=== PATIENT | female | born 1990 | race Native Hawaiian/Other Pacific Islander ===

== ENCOUNTER → 2023-11-14 10:44 | Outpatient (CLI) | payer OTHER, SELFPAY ==
[2023-11-14 11:46] LABS: Add Manual Diff / Slide Review NO; Basophils Absolute Auto 0 /uL (0-100); Basophils Percent Auto 0.3 % (0-2); Eosinophils Absolute Auto 0 /uL (0-450); Eosinophils Percent Auto 0.1 % (2-4); Hematocrit 38.7 % (36-46); Lymphocytes Absolute Auto 1600 /uL (1100-4500); Mean Corpuscular HGB Conc 33.6 % (30-36); Mean Corpuscular Hemoglobin 28.6 PG (26-34); Mean Corpuscular Volume 85.1 fL (80-100); Monocytes Absolute Auto 400 /uL (0-900); Neutrophils Absolute Auto 11100 /uL (1500-7000); Neutrophils Percent Auto 84.6 % (50-75); Platelet Count 339 X10^3/uL (150-400); Red Blood Cell Count 4.55 X10^6/uL (4.0-5.2); Red Cell Distribution Width 14.8 % (11.6-14.8); White Blood Cell Count 13.1 X10^3/uL (4.5-11.0)
[2023-11-14 11:52] LABS: Hemoglobin A1C% w Est Avg Glu 5.4 % (4.0-6.0)
[2023-11-14 11:56] LABS: Natera Collection Specimen Collected
[2023-11-14 12:08] LABS: Alanine Aminotransferase 13 IU/L (<35); Albumin 4.5 g/dL (3.5-5.0); Albumin Globulin Ratio 1.4 (1.0-2.8); Alkaline Phosphatase 38 U/L (38-126); Aspartate Aminotransferase 18 IU/L (14-36); BUN Creatinine Ratio 19.5 (6-22); Bilirubin Total 0.3 mg/dL (0.2-1.3); Blood Urea Nitrogen 8 mg/dL (7-17); Calcium 9.4 mg/dL (8.4-10.2); Carbon Dioxide 24 mmol/L (22-32); Chloride 107 mmol/L (98-107); Estimated Glomerular Filt Rate > 60 mL/min (>60); Globulin 3.2 g/dL (1.7-4.1); Glucose 148 mg/dL (70-100); HEMOLYSIS < 15 (0-50); Potassium 3.7 mmol/L (3.4-5.1); Sodium 138 mmol/L (137-145); Total Protein 7.7 g/dL (6.3-8.2)
[2023-11-14 12:25] LABS: Free T4, Direct Thyroxine 1.04 ng/dL (0.78-2.19)
[2023-11-14 12:40] LABS: Thyroid Stimulating Hormone 0.838 uIU/mL (0.47-4.68)
== END ==
PROVIDERS: Referring Provider Obstetrics & Gynecology; Visit Provider Obstetrics & Gynecology
DX: O09.522 Supervision of elderly multigravida, second trimester (principal); O99.280 Endocrine, nutritional and metabolic diseases complicating pregnancy, unspecified trimester; O09.819 Supervision of pregnancy resulting from assisted reproductive technology, unspecified trimester; E03.9 Hypothyroidism, unspecified; Z3A.13 13 weeks gestation of pregnancy
CPT/HCPCS: 36415; 80053; 83036; 84439; 84443; 85025

== ENCOUNTER → 2024-01-21 08:34 | Outpatient (CLI) | payer OTHER, SELFPAY ==
[2024-01-21 14:32] LABS: Free T4, Direct Thyroxine 0.79 ng/dL (0.78-2.19)
[2024-01-21 14:46] LABS: Thyroid Stimulating Hormone 1.99 uIU/mL (0.47-4.68)
== END ==
PROVIDERS: Referring Provider Obstetrics & Gynecology; Visit Provider Obstetrics & Gynecology
DX: O99.280 Endocrine, nutritional and metabolic diseases complicating pregnancy, unspecified trimester (principal); E03.9 Hypothyroidism, unspecified; O09.819 Supervision of pregnancy resulting from assisted reproductive technology, unspecified trimester
CPT/HCPCS: 36415; 82105; 84439; 84443

== ENCOUNTER → 2024-02-20 07:48 | Outpatient (CLI) | payer OTHER, SELFPAY ==
[2024-02-20 09:52] LABS: Hematocrit 37.4 % (36-46); Hemoglobin 12.4 g/dL (12.0-16.0)
[2024-02-20 10:14] LABS: GTT (PREG) 1 Hour PP 50gm Dose 162 mg/dL (76-139)
== END ==
PROVIDERS: Referring Provider Obstetrics & Gynecology; Visit Provider Obstetrics & Gynecology
DX: Z34.02 Encounter for supervision of normal first pregnancy, second trimester (principal); Z3A.26 26 weeks gestation of pregnancy
CPT/HCPCS: 36415; 82950; 85014; 85018

== ENCOUNTER → 2024-02-29 07:59 | Outpatient (CLI) | payer OTHER, SELFPAY ==
[2024-02-29 10:09] LABS: Glucose Fasting Gestational 84 mg/dL (76-95)
[2024-02-29 10:13] LABS: Glucose 1 Hour Gest 187 mg/dL (76-180)
[2024-02-29 10:58] LABS: Glucose 2 Hour Gest 165 mg/dL (76-155)
[2024-02-29 11:07] LABS: Glucose Tol Interp,Gestational INTERPRETATION
[2024-02-29 11:40] LABS: Glucose 3 Hour Gest 94 mg/dL (76-140)
== END ==
PROVIDERS: Referring Provider Obstetrics & Gynecology; Visit Provider Obstetrics & Gynecology
DX: O99.810 Abnormal glucose complicating pregnancy (principal)
CPT/HCPCS: 36415; 82951; 82952

== ENCOUNTER 2024-03-11 06:46 | Observation (INO) | payer OTHER, SELFPAY ==
--- NOTE | 2024-03-11 07:23 | DI.US.S_ITS ---
PROCEDURE: US OB LIMITED INDICATIONS: RIGHT FLANK PAIN OUTSIDE/PRIOR DATING DATA: Last menstrual period (LMP): Unknown. LMP-based estimated date of delivery (CHUCHO): Unknown. First dating scan (date and location): Unknown. Estimated date of delivery (CHUCHO) from IVF: 05/17/2024. The calculations are made using the IVF CHUCHO of 05/17/2024. TECHNIQUE: Real-time scanning was performed of the fetus, with image documentation. Endovaginal scanning: Not performed COMPARISON: None. FINDINGS: A single living intrauterine gestation is present. Presentation: Vertex. Placenta: Placental position is anterior, without previa. Amniotic fluid index: 12.8 cm, normal range is 5-24 cm. Single deepest vertical pocket is 8.2 cm. heart rate: 130 beats per minute. Maternal cervical canal: 2.9 cm long. Normal lower limit is 2.5 cm. Clinically estimated gestational age: 30 weeks 3 days Other: There is moderate to severe hydronephrosis involving the right kidney. An obstructing stone is not identified. IMPRESSION: 1. Living 3rd trimester intrauterine . 2. Moderate to severe hydronephrosis of the right kidney. Comment: Preliminary findings were reported by the gold assayer to the referring provider at the time of study completion. Dictated by: Mateo Ruiz M.D. on 03/11/2024 at 8:16 Approved by: Mateo Ruiz M.D. on 03/11/2024 at 8:19
[2024-03-11 07:50] LABS: Appearance Urine UA CLEAR; Bilirubin Urine UA NEGATIVE (NEGATIVE); Color Urine UA YELLOW; Glucose Urine UA NEGATIVE (Negative); Ketones Urine UA NEGATIVE (NEGATIVE); Leukocyte Esterase Urine UA TRACE (NEGATIVE); Nitrite Urine UA NEGATIVE (Negative); Occult Blood Urine UA 3+ (Negative); Protein Urine UA TRACE (Negative); Urine Volume 10mL (spun); Urobilinogen Urine UA 0.2 E.U./dL (0.2)
[2024-03-11 07:52] LABS: Bacteria Urine Moderate (10-30); Culture Indicated Urine Specimen Cultured; RBC Urine 10-30/HPF (0-5/HPF); Squamous Epithelial Cell Urine 0-1 /HPF (0-5/HPF); WBC Urine 1-5/HPF (0-5/HPF)
[2024-03-11] MEDS: ONDANSETRON 4 MG/2 ML INJ IV (07:53)
[2024-03-11] MEDS: ACETAMINOPHEN IV 1,000 MG/100 ML VIAL 400 MG IV (07:53)
[2024-03-11 07:55] LABS: Add Manual Diff / Slide Review NO; Basophils Absolute Auto 100 /uL (0-100); Basophils Percent Auto 0.5 % (0-2); Eosinophils Absolute Auto 200 /uL (0-450); Eosinophils Percent Auto 1.4 % (2-4); Hematocrit 40.1 % (36-46); Hemoglobin 13.5 g/dL (12.0-16.0); Lymphocytes Absolute Auto 1400 /uL (1100-4500); Lymphocytes Percent Auto 11.1 % (25-40); Mean Corpuscular HGB Conc 33.7 % (30-36); Mean Corpuscular Hemoglobin 29.8 PG (26-34); Mean Corpuscular Volume 88.7 fL (80-100); Monocytes Absolute Auto 400 /uL (0-900); Neutrophils Absolute Auto 10600 /uL (1500-7000); Platelet Count 288 X10^3/uL (150-400); Red Blood Cell Count 4.53 X10^6/uL (4.0-5.2); Red Cell Distribution Width 14.4 % (11.6-14.8); White Blood Cell Count 12.6 X10^3/uL (4.5-11.0)
[2024-03-11] MEDS: LACTATED RINGERS 1,000 ML 1000 ML IV (08:00)
[2024-03-11 08:33] LABS: Alanine Aminotransferase 25 IU/L (<35); Albumin 3.9 g/dL (3.5-5.0); Albumin Globulin Ratio 1.3 (1.0-2.8); Alkaline Phosphatase 60 U/L (38-126); Aspartate Aminotransferase 26 IU/L (14-36); BUN Creatinine Ratio 14.9 (6-22); Bilirubin Total 0.4 mg/dL (0.2-1.3); Blood Urea Nitrogen 7 mg/dL (7-17); Calcium 9.4 mg/dL (8.4-10.2); Carbon Dioxide 19 mmol/L (22-32); Chloride 106 mmol/L (98-107); Estimated Glomerular Filt Rate > 60 mL/min (>60); Globulin 2.9 g/dL (1.7-4.1); Glucose 108 mg/dL (70-100); HEMOLYSIS < 15 (0-50); Potassium 4.2 mmol/L (3.4-5.1); Sodium 134 mmol/L (137-145); Total Protein 6.8 g/dL (6.3-8.2)
--- NOTE | 2024-03-11 09:46 | P.TNLD_ITS ---
Visit Information Visit Information Date of evaluation: 03/11/24 On-call OB Provider: Dulce Guzman Comments/Additional reasons for admission: 34yo at 30+3wks presented to triage today for right flank pain. She reports having lower abdominal cramping that started last night, then this morning the right flank pain started and acutely worsened. She had nausea and vomiting associated with this, and presented to the center. She denies fever, chills, or dysuria. Vital Signs Vital Signs: BP 118/83, P 83, T 98.7, 100% RA [facility] Medical History (Updated 03/11/24 @ 09:45 by Dulce Guzman DO) High risk due to history of previous obstetrical problem Migraine without aura Ruptured ectopic Surgical History (Updated 10/31/23 @ 09:23 by Nayla Grant RN) [place] teeth extracted History of endoscopy History of eye surgery History of gynecologic surgery History of bilateral salpingectomy Family History (Updated 10/31/23 @ 09:29 by Nayla Grant RN) Mother Ovarian cancer Breast cancer Father Pancreatic cancer Diabetes mellitus Grandfather Prostate cancer Family/Other Diabetes mellitus Grandmother Pacemaker Grandfather Heart disease Uncle Leukemia in relapse Uncle No problems noted. 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[employer]) current occupational exposures/hazards: Yes (aware of precautions; facility does not screen for TB) special betty needs: No travel history: recent ([place]) seatbelt use: always helmet use: No (counseled to wear a helmet when snowboarding) water heater temp set < 120 deg: Yes working smoke detector in home: Yes fire extinguisher in home: Yes carbon monox detector in home: Yes firearms in home: Yes firearms unloaded and locked: Yes do you feel safe at home: Yes Smoking Status: Never smoker second hand exposure: No alcohol intake: former (occasionally when not ) substance use type: does not use during the past year weight has: increased > 10 lbs (with hormone therapy for IVF) well-balanced diet: daily or most days daily servings fruits/ve or more times/day caffeine: No (not since prior to IVF transfer) Type(s) of exercise: walking and weight lifting Review of Systems Review of Systems ROS: Yes All systems reviewed with the patient and are negative except as otherwise documented Exam Const General: healthy appearing, comfortable and No acute distress Resp Effort & Inspection: normal respiratory effort and able to speak in complete sentences Back/Spine/Pelvis Other: negative CVA tenderness bilaterally Neuro General: patient alert, patient awake and patient oriented x3 Psych Mood: congruent mood Affect: normal affect Objective Imaging US - abdomen: Radiologist's impression: INDICATIONS: RIGHT FLANK PAIN OUTSIDE/PRIOR DATING DATA: Last menstrual period (LMP): Unknown. LMP-based estimated date of delivery (CHUCHO): Unknown. First dating scan (date and location): Unknown. Estimated date of delivery (CHUCOH) from IVF: 05/17/2024. The calculations are made using the IVF CHUCHO of 05/17/2024. TECHNIQUE: Real-time scanning was performed of the fetus, with image documentation. Endovaginal scanning: Not performed COMPARISON: None. FINDINGS: A single living intrauterine gestation is present. Presentation: Vertex. Placenta: Placental position is anterior, without previa. Amniotic fluid index: 12.8 cm, normal range is 5-24 cm. Single deepest vertical pocket is 8.2 cm. heart rate: 130 beats per minute. Maternal cervical canal: 2.9 cm long. Normal lower limit is 2.5 cm. Clinically estimated gestational age: 30 weeks 3 days Other: There is moderate to severe hydronephrosis involving the right kidney. An obstructing stone is not identified. IMPRESSION: 1. Living 3rd trimester intrauterine . 2. Moderate to severe hydronephrosis of the right kidney. Comment: Preliminary findings were reported by the basket hand weaver to the referring provider at the time of study completion. Dictated by: Mateo Ruiz M.D. on 03/11/2024 at 8:16 Approved by: Mateo Ruiz M.D. on 03/11/2024 at 8:19 Labs 03/11/24 07:35 03/11/24 08:05 Labs: Laboratory Results - last 24 hr 03/11/24 03/11/24 03/11/24 07:30 07:35 08:05 WBC 12.6 H RBC 4.53 Hgb 13.5 Hct 40.1 MCV 88.7 MCH 29.8 MCHC 33.7 RDW 14.4 Plt Count 288 Neut % (Auto) 84.0 H Lymph % (Auto) 11.1 L [place] % (Auto) 3.0 Eos % (Auto) 1.4 L Baso % (Auto) 0.5 Neut # (Auto) 25876 H Lymph # (Auto) 1400 [place] # (Auto) 400 Eos # (Auto) 200 Baso # (Auto) 100 Sodium 134 L Potassium 4.2 Chloride 106 Carbon Dioxide 19 L BUN 7 Creatinine 0.47 L Estimated GFR > 60 BUN/Creatinine Ratio 14.9 Glucose 108 H Calcium 9.4 Total Bilirubin 0.4 AST 26 ALT 25 Alkaline Phosphatase 60 Total Protein 6.8 Albumin 3.9 Globulin 2.9 Albumin/Globulin Ratio 1.3 Urine Color Yellow Urine Appearance Clear Urine pH 7.0 Ur Specific [place] 1.020 Urine Protein Trace H Urine Glucose (UA) Negative Urine Ketones Negative Urine Occult Blood 3+ H Urine Nitrate Negative Urine Bilirubin Negative Urine Urobilinogen 0.2 Ur Leukocyte Esterase Trace H Urine RBC 10-30/hpf H Urine WBC 1-5/hpf Ur Squamous Epith Cells 0-1 /hpf Urine Bacteria Moderate (10-30) H Ur Culture Indicated? Specimen cultured Vol Urine Centrifuged 10ml (spun) Evaluation Evaluation Baseline heart rate: 130 Variability: Moderate (11-25) monitor accelerations: Present Monitor Decelerations: Absent Category of Tracing: Reactive Diagnosis, Plan/Disposition Final Diagnosis (1) Hydronephrosis of right kidney: Status: Acute (2) Hematuria detected by chemical testing: Status: Acute Plan/Disposition Plan: 34yo at 30+3wks with suspected nephrolithiasis based on hematuria and right flank pain. Afebrile, no pyuria, and no CVA tenderness points away from pyelonephritis at this time. Spoke with Dr. Garland of urology, who agreed that there was no indication for other intervention at this time. -advised pt to use tylenol for pain, and tamsulosin for prevention of ureteral spasm -reviewed infectious and labor precautions with patient -advised to keep her scheduled follow-up next week, and call with any worsening symptoms or other concerns OB Disposition: home
[2024-03-12 15:09] LABS: Candida species Negative (Negative); Gardnerella vaginalis Negative (Negative); Trichomoas vaginalis Negative (Negative)
== END 2024-03-11 10:00 | disposition home or self-care (01) ==
PROVIDERS: Family Medicine; Admitting Provider Obstetrics & Gynecology; Referring Provider Obstetrics & Gynecology; Visit Provider Obstetrics & Gynecology
DX: O99.891 Other specified diseases and conditions complicating pregnancy (principal); N13.30 Unspecified hydronephrosis; Z3A.30 30 weeks gestation of pregnancy; R31.9 Hematuria, unspecified
CPT/HCPCS: 59025; 59050; 76815; 80053; 81001; 85025; 87086; 87480; 87510; 87660; 96360; 99222; G0378; G0379; J0134; J2405

== ENCOUNTER → 2024-03-12 13:08 | Outpatient (CLI) | payer OTHER, SELFPAY ==
--- NOTE | 2024-03-12 16:32 | DIAB.GDA ---
Initial Gestational Diabetes Assessment Name: Caro Ryan (Tal) Date: 03/12/24 Time: 1:10-145p Dx: Gestational Diabetes Provider: Christina CHUCHO: 05/17/24 Weeks: 30 Tal presents for initial GDM visit virtually using [facility]. Father with T2DM. No previous blood sugar PMHx. Extensive obstetrics hx. Recent triage notes indicate moderate to severe hydronephrosis of right kidney. Has reviewed lab results. States she is confused why numbers were so high but SMBG in goal range. Questions regarding whether she can stop SMBG. Has h/o tracking macros, though not currently doing this. 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 Diet recall indicates meals are often low in CHO, but then reports often eating higher carb meals with in range BG as well. Anthropometrics: Ht: 62 Wt: 151# 01/16/24 at OB Prepregnancy wt: 135# Physical Activity: Limits due to high risk Self-Monitoring Blood Glucose: Checking FBG and 1 hour pc. No recent BG last three days due to feeling ill and triage visit. No elevated FBG. 2/7 recent elevated pc breakfast. Limited data from lunch but 1/4 elevated.1/5 elevated pc dinner. Missing data related mostly to missing one hour time period due to driving or work. Discussed potential for 2 hour as a back up time to check with goal of <120 at that time. Date Pre Post Pre Post Pre Post HS 03/03 87 124 129 100 03/04 90 112 130 106 03/05 91 119 113 120 03/06 90 129 166 03/07 89 94 03/08 75 147 111 9 85 153 150 Diabetes Medications: None Pertinent Labs: Screen 162 ; OGTT: 84, 187 H, 165 H, 94 Nutrition Rx: Carbohydrates: Daily: 180g Meal: 45-60g lunch and dinner; 30g breakfast Snack: 15-30g Nutrition Diagnosis: Altered nutrition related lab value r/t GDM dx aeb recent OGTT Inconsistent CHO intake r/t nutrition knowledge deficit aeb pt report and diet recall Self monitoring deficit r/t needing to skip readings at 1 hour at times aeb SMBG reported Intervention: This participant was very receptive. Provided appropriate educational handouts. Discussed the following topics: GDM pathophysiology and impact of hyperglycemia on mom and baby Risk for T2DM for mom and baby in the future Ways to reduce risk T2DM Plate Method, meal timing, carb counting, pairing macronutrients and spreading out CHO for better BG management Blood glucose goals (FBG: <95 and 1 hour <140 mg/dL or 2 hour <120mg/dl); importance of checking 4x per day at this time (FBG and pc) Impact of macronutrients on blood glucose Recommended servings for carbohydrates at meals and snacks Brainstormed appropriate meal plan based on her food preferences Potential for changes in BG as progresses Avoiding beverages with sugar Goals: Aim for nutrition rx, balancing CHO and pro at meals Can check at 2 hour and juliann in log book prn Continue checking 4x per day at this time Follow-up: LELIA BYRNES follow-up in two weeks Jodee Cox RDN, FITZ Certified Diabetes Care and Telesales Consultant T: [phone] F: [phone] [email or web address] Thank you for this referral
== END ==
PROVIDERS: Referring Provider Obstetrics & Gynecology
DX: O24.419 Gestational diabetes mellitus in pregnancy, unspecified control (principal); Z3A.30 30 weeks gestation of pregnancy; Z71.3 Dietary counseling and surveillance
CPT/HCPCS: 97802

== ENCOUNTER → 2024-03-19 15:44 | Outpatient (CLI) | payer OTHER, SELFPAY | PROVIDERS: Visit Provider Obstetrics & Gynecology | DX: R31.9 Hematuria, unspecified (principal) | CPT/HCPCS: 87086 ==

== ENCOUNTER 2024-03-23 16:01 | Observation (INO) | payer OTHER, SELFPAY ==
[2024-03-23] MEDS: LACTATED RINGERS 1,000 ML 1000 ML IV (16:35)
[2024-03-23] MEDS: LIDOCAINE 2% (GLYDO) 6 ML GEL TOP (17:00)
[2024-03-23 17:15] LABS: Appearance Urine UA SL CLOUDY; Bilirubin Urine UA NEGATIVE (NEGATIVE); Color Urine UA YELLOW; Glucose Urine UA NEGATIVE (Negative); Ketones Urine UA NEGATIVE (NEGATIVE); Leukocyte Esterase Urine UA TRACE (NEGATIVE); Nitrite Urine UA NEGATIVE (Negative); Occult Blood Urine UA 3+ (Negative); Protein Urine UA 1+ (Negative); Urobilinogen Urine UA 0.2 E.U./dL (0.2)
[2024-03-23 17:19] LABS: pH Urine UA 6.5 (4.5-8.0)
[2024-03-23 17:22] LABS: Bacteria Urine Occasional (0-1); Culture Indicated Urine Cult Not Indicated; RBC Urine 30-100/HPF (0-5/HPF); Squamous Epithelial Cell Urine 0-1 /HPF (0-5/HPF); Urine Volume Low Vol <10mL (spun); WBC Urine 0-1/HPF (0-5/HPF)
== END 2024-03-23 18:45 | disposition home or self-care (01) ==
PROVIDERS: Admitting Provider Student in an Organized Health Care Education/Training Program; Referring Provider Student in an Organized Health Care Education/Training Program; Visit Provider Student in an Organized Health Care Education/Training Program
DX: O60.03 Preterm labor without delivery, third trimester (principal); O09.523 Supervision of elderly multigravida, third trimester; Z3A.32 32 weeks gestation of pregnancy
CPT/HCPCS: 59025; 81001; 87086; 96360; 96361; G0378; G0379

== ENCOUNTER → 2024-03-26 15:16 | Outpatient (CLI) | payer OTHER, SELFPAY ==
--- NOTE | 2024-03-26 15:39 | DIAB.GDFU ---
Follow-up Gestational Diabetes Assessment Name: Caro Ryan (Tal) Date: 03/26/24 Time: 315-330p Dx: Gestational Diabetes Provider: Christina CHUCHO: 05/17/24 Weeks: 32 Tal presents for GDM visit virtually using [facility] Portal. States she has been tired over the last few days. Reports passing a kidney stone last Sunday. Today she tells me she feels these visits are not necessary since her BG are in range. Also reports she would like to stop checking BG all together, and she plans to discuss this with her provider. Did advise that some OB recs would encourage a minimum of checking 2x per day at minimum, fasting and 1 meal of the day. Also reviewed how hormones can increase BG over the last part of . Though her father has h/o T2Dm, reports he also has a very different lifestyle including ETOH abuse. Overall, Tal has been somewhat vague about her diet, but states she eats healthy and is getting enough. Seems since she feels these visits are not needed, sharing details about her diet is a challenge. Continues to drink sweetened beverages, though does not seem to impact BG. One elevated readings after banana pancakes quite a bit when asked how much was consumed. Is eating rice (1/2-1c per serving), bun/fries with burger. Endorses some early satiety, normal with progression of . Deliver scheduled for 04/21 per report. 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 Anthropometrics: Ht: 62 Wt: 169.25# 03/19/24 at OB 151# 01/16/24 at OB Prepregnancy wt: 135# Physical Activity: Limits due to high risk Self-Monitoring Blood Glucose: Checking FBG and 1 hour pc, some 2 hour when needed. No recent BG last four days due to feeling tired per report. All FBG in goal. 2 recent elevated pc breakfast. All other pc readings available in goal. Date Pre Post Pre Post Pre Post HS 9/4 72 110 91 1.5h 103 2h 9/5 91 144 95 9/6 88 115 2h 86 9/7 88 134 128 93 9/8 85 116 78 9/11 88 150 114 /12 85 116 107 126 /13 82 9/14 80 108 109 100 Diabetes Medications: None Pertinent Labs: Screen 162 ; OGTT: 84, 187 H, 165 H, 94 Nutrition Rx: Carbohydrates: Daily: 180g Meal: 45-60g lunch and dinner; 30g breakfast Snack: 15-30g Nutrition Diagnosis: Altered nutrition related lab value r/t GDM dx aeb recent OGTT Inconsistent CHO intake r/t nutrition knowledge deficit aeb pt report and diet recall- improved Self monitoring deficit r/t needing to skip readings at 1 hour at times aeb SMBG reported - improved Intervention: Provided appropriate educational handouts. Discussed the following topics: Recent blood sugar results and impact of food and hormones Minimal BG checks recommended during with GDM Encouraged balanced CHO portions with protein Discouraged sweetened beverages Benefits, resources, and nutrition for recommendations for nutrition and physical activity recommendations for T2DM risk reduction OGTT at 6-12 weeks Checking blood sugars twice per week (goal: fasting <100 mg/dL and 2 hour pc <140 mg/dL) until 6 week check-up HgA1c q 1-3 years. Goals: Aim for nutrition rx, balancing CHO and pro at meals- met Can check at 2 hour and juliann in log book prn- met Continue checking 4x per day at this time- 75% met Get OGTT 6-12 weeks - new Get HGA1c q 1-3 years - new Follow-up: LELIA BYRNES follow-up prn at pt request. Since most BG in range, she is delivering at 36 weeks, and she would like to d/c DM ed visits, encouraged her to call or message with any questions or f/u needs. She agreed to this plan. Jodee Cox RDN, FITZ Certified Diabetes Care and Field Advisor T: [phone] F: [phone] [email or web address] Thank you for this referral
== END ==
LOC: DIET 15:17
PROVIDERS: Referring Provider Obstetrics & Gynecology
DX: O24.419 Gestational diabetes mellitus in pregnancy, unspecified control (principal); Z3A.32 32 weeks gestation of pregnancy; Z71.3 Dietary counseling and surveillance
CPT/HCPCS: 97803

== ENCOUNTER 2024-04-01 09:14 | Outpatient (CLI) | payer OTHER, SELFPAY | END 2024-04-01 09:44 | disposition home or self-care (01) | LOC: LABOR 09:28 → OB 04-07 09:00 | PROVIDERS: Referring Provider Obstetrics & Gynecology; Visit Provider Obstetrics & Gynecology | DX: O09.523 Supervision of elderly multigravida, third trimester (principal); O26.23 Pregnancy care for patient with recurrent pregnancy loss, third trimester; Z3A.33 33 weeks gestation of pregnancy | CPT/HCPCS: 59025; G0378; G0379 ==

== ENCOUNTER 2024-04-05 22:24 | Outpatient (CLI) | payer OTHER, SELFPAY ==
--- NOTE | 2024-04-05 22:54 | PM.OBTRLD ---
Visit Information Visit Information Date of evaluation: 04/05/24 Primary OB Provider: Elvira Vasquez On-call OB Provider: Jenna Estrada Comments/Additional reasons for admission: 34yo at 34w0d here due to concerns for ROM. The pt reports that this evening she got out of the shower and felt something leaking from her vaginal area. She dried off and put on some underwear, that then also became wet. She denies any bleeding or contractions. She is feeling her baby move regularly. [facility] Medical History (Updated 04/05/24 @ 22:56 by Jenna Estrada MD) High risk due to history of previous obstetrical problem Migraine without aura Ruptured ectopic Surgical History (Updated 10/31/23 @ 09:23 by Nayla Grant, RN) [place] teeth extracted History of endoscopy History of eye surgery History of gynecologic surgery History of bilateral salpingectomy Family History (Updated 10/31/23 @ 09:29 by Nayla Grant, RN) Mother Ovarian cancer Breast cancer Father Pancreatic cancer Diabetes mellitus Grandfather Prostate cancer Family/Other Diabetes mellitus Grandmother Pacemaker Grandfather Heart disease Uncle Leukemia in relapse Uncle No problems noted. 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[employer]) current occupational exposures/hazards: Yes (aware of precautions; facility does not screen for TB) special betty needs: No travel history: recent ([place]) seatbelt use: always helmet use: No (counseled to wear a helmet when snowboarding) water heater temp set < 120 deg: Yes working smoke detector in home: Yes fire extinguisher in home: Yes carbon monox detector in home: Yes firearms in home: Yes firearms unloaded and locked: Yes do you feel safe at home: Yes Smoking Status: Never smoker second hand exposure: No alcohol intake: former (occasionally when not ) substance use type: does not use during the past year weight has: increased > 10 lbs (with hormone therapy for IVF) well-balanced diet: daily or most days daily servings fruits/ve or more times/day caffeine: No (not since prior to IVF transfer) Type(s) of exercise: walking and weight lifting Evaluation Evaluation Baseline heart rate: 120 Variability: Moderate (11-25) monitor accelerations: Present Monitor Decelerations: Absent Non-invasive Membranes Rupture Test: negative Diagnosis, Plan/Disposition Final Diagnosis (1) Vaginal discharge: Status: Acute Plan/Disposition Plan: 34yo at 34w0d here due to concerns for ROM. Amniosure negative. NST reactive. Stable for d/c home. OB Disposition: home
== END 2024-04-05 23:12 | disposition home or self-care (01) ==
LOC: OB 04-07 09:03
PROVIDERS: PCP Nurse Practitioner Family; Referring Provider Family Medicine; Visit Provider Family Medicine
DX: O26.893 Other specified pregnancy related conditions, third trimester (principal); N89.8 Other specified noninflammatory disorders of vagina; Z3A.34 34 weeks gestation of pregnancy
CPT/HCPCS: 59025; 84112; G0378; G0379

== ENCOUNTER 2024-04-09 14:37 | Outpatient (CLI) | payer OTHER, SELFPAY | END 2024-04-09 15:12 | disposition home or self-care (01) | LOC: LABOR 14:44 → OB 04-10 08:16 | PROVIDERS: PCP Nurse Practitioner Family; Referring Provider Obstetrics & Gynecology; Visit Provider Obstetrics & Gynecology | DX: O09.523 Supervision of elderly multigravida, third trimester (principal); O26.23 Pregnancy care for patient with recurrent pregnancy loss, third trimester; Z3A.34 34 weeks gestation of pregnancy | CPT/HCPCS: 59025; G0378; G0379 ==

== ENCOUNTER 2024-04-16 13:11 | Observation (INO) | payer OTHER, SELFPAY ==
--- NOTE | 2024-04-16 13:53 | P.TNLD_ITS ---
Visit Information Visit Information Date of evaluation: 04/16/24 Primary OB Provider: Elvira Vasquez On-call OB Provider: Elvira Vasquez Reason for Evaluation: Yes non-stress test Comments/Additional reasons for admission: AMA, h/o prior ruptured cornual ectopic with myometrial incision Vital Signs Vital Signs: maternal VSS reviewed per OBIX and wnl [facility] Medical History (Updated 04/05/24 @ 22:56 by Jenna Estrada MD) High risk due to history of previous obstetrical problem Migraine without aura Ruptured ectopic Surgical History (Updated 10/31/23 @ 09:23 by Nayla Grant, RN) [place] teeth extracted History of endoscopy History of eye surgery History of gynecologic surgery History of bilateral salpingectomy Family History (Updated 10/31/23 @ 09:29 by Nayla Grant, RN) Mother Ovarian cancer Breast cancer Father Pancreatic cancer Diabetes mellitus Grandfather Prostate cancer Family/Other Diabetes mellitus Grandmother Pacemaker Grandfather Heart disease Uncle Leukemia in relapse Uncle No problems noted. 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[employer]) current occupational exposures/hazards: Yes (aware of precautions; facility does not screen for TB) special betty needs: No travel history: recent ([place]) seatbelt use: always helmet use: No (counseled to wear a helmet when snowboarding) water heater temp set < 120 deg: Yes working smoke detector in home: Yes fire extinguisher in home: Yes carbon monox detector in home: Yes firearms in home: Yes firearms unloaded and locked: Yes do you feel safe at home: Yes Smoking Status: Never smoker second hand exposure: No alcohol intake: former (occasionally when not ) substance use type: does not use during the past year weight has: increased > 10 lbs (with hormone therapy for IVF) well-balanced diet: daily or most days daily servings fruits/ve or more times/day caffeine: No (not since prior to IVF transfer) Type(s) of exercise: walking and weight lifting Review of Systems Review of Systems ROS: Yes All systems reviewed with the patient and are negative except as otherwise documented Exam Const General: cooperative, healthy appearing and comfortable Nutritional Appearance: average body habitus Orientation: alert and awake Limitations: mental status not altered Resp Effort & Inspection: normal respiratory effort and able to speak in complete sentences Skin General: no rashes or lesions noted Neuro General: patient alert, patient awake and patient oriented x3 Extrem General: normal to inspection Psych Mental Status: mental status grossly normal Judgment: judgment good Evaluation Evaluation Baseline heart rate: 140 Variability: Average (6-10) monitor accelerations: Present Monitor Decelerations: Absent Category of Tracing: Reactive Status: Category l Diagnosis, Plan/Disposition Final Diagnosis (1) High risk due to history of previous obstetrical problem: Status: Acute (2) conceived through in vitro fertilization: Status: Acute Plan/Disposition Plan: reactive NST strict precautions to office for RN administration of RSV vaccination Return for CS as scheduled 04/21 OB Disposition: home
== END 2024-04-16 13:52 | disposition home or self-care (01) ==
LOC: LABOR 13:12
PROVIDERS: Admitting Provider Obstetrics & Gynecology; PCP Nurse Practitioner Family; Referring Provider Obstetrics & Gynecology; Visit Provider Obstetrics & Gynecology
DX: O09.813 Supervision of pregnancy resulting from assisted reproductive technology, third trimester (principal); O09.523 Supervision of elderly multigravida, third trimester; O09.13 Supervision of pregnancy with history of ectopic pregnancy, third trimester; Z3A.35 35 weeks gestation of pregnancy
CPT/HCPCS: 59025; G0378; G0379

== ENCOUNTER 2024-04-21 05:37 | Inpatient (IN) | payer OTHER, SELFPAY ==
[2024-04-21 05:40] VITALS: BP 127/71
[2024-04-21 06:03] LABS: Add Manual Diff / Slide Review NO; Basophils Absolute Auto 100 /uL (0-100); Basophils Percent Auto 0.6 % (0-2); Eosinophils Absolute Auto 300 /uL (0-450); Eosinophils Percent Auto 2.8 % (2-4); Hematocrit 38.9 % (36-46); Lymphocytes Absolute Auto 1600 /uL (1100-4500); Lymphocytes Percent Auto 17.6 % (25-40); Mean Corpuscular HGB Conc 33.4 % (30-36); Mean Corpuscular Hemoglobin 29.9 PG (26-34); Mean Corpuscular Volume 89.5 fL (80-100); Monocytes Absolute Auto 500 /uL (0-900); Monocytes Percent Auto 5.6 % (3-14); Neutrophils Absolute Auto 6800 /uL (1500-7000); Neutrophils Percent Auto 73.4 % (50-75); Platelet Count 274 X10^3/uL (150-400); Red Blood Cell Count 4.35 X10^6/uL (4.0-5.2); Red Cell Distribution Width 14.3 % (11.6-14.8); White Blood Cell Count 9.2 X10^3/uL (4.5-11.0)
[2024-04-21] MEDS: LACTATED RINGERS 1,000 ML 999 ML IV ×2 (06:50→08:58)
--- NOTE | 2024-04-21 07:05 | P.HPOB_ITS ---
OB HPI Date/Time Date of admission: 04/21/24 Date Patient Seen: 04/21/24 Time Patient Seen: 07:08 History of Present Condition Chief complaint: Primary , h/o myometrial incision : 3 Para: 0 Estimated Gestational Age (weeks): 36.2 Narrative: Caro Palma is a 34 year old at 36w2d by IVF dating presents for scheduled early term primary section secondary to poor obstetrical history with h/o prior myometrial incision. Patient's course has been notable for A1GDM, co-management with [facility] secondary to early concern for abnormal placentation (ruled out per [facility] level-II sono, ok for local delivery), AMA, maternal nephrolithiasis in (resolved) without pyelonephritis. [facility] recommendations to deliver at late secondary to h/o ruptured L cornual ectopic with myometrial repair. +FM, denies VB, LOF, dysuria, ctx. Overall feeling well, excited to meet baby. Indications Indication for induction OB: other Operative indications ( section): previous uterine surgery History of Present care: good care Dating criteria: other (IVF) Ultrasounds: normal 1st trimester US and normal mid trimester US Abnormal ultrasound findings: level-II sono without concerns for abnormal placentation Obstetrical complications: gestational diabetes (A1) Preadmission Labs Blood type: A (+) positive -: Antibody screen: negative, Cystic fibrosis screen: negative, GBS status: unknown, HBsAG: negative, HIV: negative, HSV 1: unknown, HSV 2: unknown and RPR/VDLR: negative -: Chlamydia screen: not detected and Gonorrhea screen: not detected -: Rubella: immune and Varicella: immune HCT: 38.9 HCAB: negative PAP: Normal Cell-free DNA: low-risk, XX 1 hr GTT: 168 3 hr GTT: 1 hr (187) and 2 hr (165) Fasting blood glucose: 84 Prior (ies) History: 3 SAB R ectopic - salpingectomy L cornual/interstitial - rupture with avulsion of cornua, myometrial incision Evaluation Evaluation Baseline heart rate: 135 Variability: Moderate (11-25) monitor accelerations: Present Monitor Decelerations: Absent Category of Tracing: Reactive Status: Category l [facility] Medical History (Updated 04/05/24 @ 22:56 by Jenna Estrada MD) High risk due to history of previous obstetrical problem Migraine without aura Ruptured ectopic Surgical History (Updated 10/31/23 @ 09:23 by Nayla Grant, ROSALIO) [place] teeth extracted History of endoscopy History of eye surgery History of gynecologic surgery History of bilateral salpingectomy Family History (Updated 10/31/23 @ 09:29 by Nayla Grant, RN) Mother Ovarian cancer Breast cancer Father Pancreatic cancer Diabetes mellitus Grandfather Prostate cancer Family/Other Diabetes mellitus Grandmother Pacemaker Grandfather Heart disease Uncle Leukemia in relapse Uncle No problems noted. 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[employer]) current occupational exposures/hazards: Yes (aware of precautions; facility does not screen for TB) special betty needs: No travel history: recent ([place]) seatbelt use: always helmet use: No (counseled to wear a helmet when snowboarding) water heater temp set < 120 deg: Yes working smoke detector in home: Yes fire extinguisher in home: Yes carbon monox detector in home: Yes firearms in home: Yes firearms unloaded and locked: Yes do you feel safe at home: Yes Smoking Status: Never smoker second hand exposure: No alcohol intake: former (occasionally when not ) substance use type: does not use during the past year weight has: increased > 10 lbs (with hormone therapy for IVF) well-balanced diet: daily or most days daily servings fruits/ve or more times/day caffeine: No (not since prior to IVF transfer) Type(s) of exercise: walking and weight lifting Meds Home Medications and Allergies Home Medications Medication Instructions Recorded Confirmed Type ascorbate calcium (vitamin C) 500 500 mg PO DAILY 10/31/23 04/09/24 History mg tablet cholecalciferol (vitamin D3) 125 125 mcg PO DAILY 10/31/23 04/09/24 History mcg (5,000 unit) capsule vit no.95-ferrous 1 tab PO DAILY 10/31/23 04/09/24 History fumarate 28 mg-folic acid 800 mcg tablet ( Multivitamins) famotidine 40 mg tablet 40 mg PO DAILY #30 tabs 12/12/23 04/09/24 Rx sennosides 8.6 mg tablet (senna) 8.6 mg PO BEDTIME #60 tabs 01/16/24 04/09/24 Rx blood sugar diagnostic (Blood #100 ea 02/29/24 04/09/24 Rx Glucose Test strips) blood-glucose meter (Blood Glucose #1 ea 02/29/24 04/09/24 Rx Monitoring kit) lancets #100 ea 02/29/24 04/09/24 Rx ondansetron 4 mg disintegrating 4 mg PO Q8H PRN nausea and 03/17/24 04/09/24 Rx tablet vomiting #14 tabs RSVPreF3 antigen-AS01E 0.5 ml IM ONCE #1 ea 04/09/24 04/09/24 Rx adjuvant(PF) 120 mcg/0.5 mL IM suspension, kit Allergies Allergy/AdvReac Type Severity Reaction Status Date / Time Penicillins Allergy Severe Anaphylaxis Verified 04/09/24 14:21 Sulfa (Sulfonamide Allergy Severe Anaphylaxis Verified 04/09/24 14:21 Antibiotics) Review of Systems Review of Systems ROS: Yes All systems reviewed with the patient and are negative except as otherwise documented OB Exam Vital signs Blood Pressure: 127/71 Pulse Rate: 57 Respiratory Rate: 18 HENMT Head: normal to inspection Resp Effort & Inspection: normal respiratory effort Cardio Rate: regular rate Rhythm: regular rhythm Extremities Lower extremity: Yes normal to inspection GI Inspection: normal to inspection Other: gravid, size c/w dates, yordan 6# Other: deferred Objective Labs 04/21/24 05:55 Labs: Laboratory Results - last 24 hr 04/21/24 05:55 WBC 9.2 RBC 4.35 Hgb 13.0 Hct 38.9 MCV 89.5 MCH 29.9 MCHC 33.4 RDW 14.3 Plt Count 274 Neut % (Auto) 73.4 Lymph % (Auto) 17.6 L [place] % (Auto) 5.6 Eos % (Auto) 2.8 Baso % (Auto) 0.6 Neut # (Auto) 6800 Lymph # (Auto) 1600 [place] # (Auto) 500 Eos # (Auto) 300 Baso # (Auto) 100 Blood Type A Positive Antibody Screen Negative Assessment and Plan Assessment and Plan Assessment and Plan narrative: 34yo at 36w2d by IVF dating presents for scheduled late- primary section secondary to prior myometrial incision Scheduled primary section T&S, CBC on admission reviewed with patient increased risk of bleeding, unlikely but possible need to convert to hysterectomy in uatsdin of abnormal placentation 2 IV access established, all uterotonics and hemorrhage meds in room for delivery A1GDM, no corticosteroids, euglycemic on admission Patient is consented for primary section, transfusion of blood products as medically indicated as well as additional procedures as indicated by intraoperative findings including but not limited to hysterectomy. Dispo: to OR Time-Based Coding :: [TOTAL MINUTES] spent with patient and on the chart (including review of chart, obtaining history, exam, reviewing outside data, placing orders, documenting exam and treatment plan, and counseling patient) on [DATE].
[2024-04-21] MEDS: CITRIC ACID/SODIUM CITRATE 15 ML SOLUTION 30 ML PO (07:24)
[2024-04-21 07:37] VITALS: BP 127/71; PULSE 57; RESP 18
--- NOTE | 2024-04-21 07:38 | PM.PREOP ---
Pre-operative Note Interval Note History & Physical reviewed/Exam performed by Physician: Yes Changes to H&P: No H&P completed within 30 days and has changed as indicated here:: 04/21/24 ASA Class (for procedural sedation): II
[2024-04-21] MEDS: CLINDAMYCIN 900 MG/50 ML PIGGYBACK 50 MG IV (08:30)
[2024-04-21] MEDS: GENTAMICIN 100 MG in SODIUM CHLORIDE 0.9% 100 ML 102.5 MG IV (08:30)
--- NOTE | 2024-04-21 08:33 | SUR.OPER ---
Supine on Padded OR bed, head on pillow, safety belt at thigh, arms secured on padded arm boards at <90 degrees abduction. Bump under right buttock. Legs uncrossed with pillow under knees, gel pad to heels, tape over blanket to lower legs.
--- NOTE | 2024-04-21 09:01 | SUR.OPER ---
Viable baby girl born at 0848 on April 21, 2026.
[2024-04-21 09:37] VITALS: BP 151/94; PULSE 85; RESP 15; TEMP 36.2; O2SAT 99
[2024-04-21 09:42] VITALS: BP 168/88; PULSE 85; RESP 16; O2SAT 99
[2024-04-21 09:47] VITALS: BP 131/83; PULSE 81; RESP 12; O2SAT 100
[2024-04-21 09:54] VITALS: BP 137/60; PULSE 79; RESP 12; TEMP 36.3; O2SAT 100
[2024-04-21] MEDS: LACTATED RINGERS 1,000 ML 125 ML IV (10:41)
[2024-04-21] MEDS: OXYCODONE IR 5 MG TABLET PO ×2 (13:01→17:14)
[2024-04-21] MEDS: ACETAMINOPHEN 325 MG TABLET 650 MG PO ×2 (13:01→18:59)
--- NOTE | 2024-04-21 13:58 | PM.OP.1 ---
Operative Date/Time/Diagnoses Date of procedure: 04/21/24 Time of procedure: 08:00 Pre-op diagnosis: 1) IUP at 36w2d; 2) h/o prior myometrial incision Post-op diagnosis: same Procedure & Clinicians Procedure: primary low transverse section Same procedure as scheduled: Yes Indications: 1) IUP at 36w2d 2) h/o myometrial incision Surgeon: Elvira Vasquez Monogram Machine Operator: Angelina Simmons Click Yes if Unassisted: No Anesthesia Type: Spinal Operative Notes Findings: LBFI in cephalic presentation grossly normal uterus, bilateral fallopian tubes surgically absent, L ovary noted adherent to L cornua minimal intra-abdominal adhesions moderate pre-fascial scar consistent with prior procedure Closure Type: primary Specimen(s): none sent Estimated Blood Loss (mL): 800 Blood products transfused: none Procedure in detail: Pt was taken to the operating room and transferred to OR table.? The spinal anesthesia was administered per anesthesia.? The patient was placed in the supine position, prepped and draped in a sterile fashion.? Prior to incision the level of anesthesia was rechecked and found to be adequate.? A timeout was once again performed. A pfannensteil incision was made 2cm superior to the pubic symphysis in line with prior scar.? This incision was carried down sharply to the level of the rectus fascia with noted moderate scar consistent with prior procedure.? The fascia was incised sharply with knife and the incision was extended bilaterally and superiorly using verdugo scissors. The superior border of the fascia was elevated with two Altagracia clamps and bluntly dissected off of the rectus muscles followed by incision of the median raphe with the scalpel.? Attention was then turned to the inferior border of the fascia which was dissected away from the underlying musculature in a similar manner down to the level of the pubic symphysis.? The rectus muscles were then in the midline and the peritoneum was identified.? The peritoneum was entered sharply under direct visualization.? The peritoneal opening was then extended manually.? The gasser machine operator?s hand was inserted in the abdomen and the uterus was found to be in a non-rotated position. The bladder blade was then inserted. The vesicouterine peritoneum was identified, elevated using DeBakey forceps and incised in the midline using Metzenbaum scissors.? The incision was carried laterally and superiorly bilaterally.? A bladder flap was further developed digitally. Next, a low transverse incision was made in the uterus using the knife.? The incision was extended laterally and superiorly bilaterally bluntly.? The gasser machine operator?s hand was then inserted into the uterus to find an infant in the vertex OT position.? The bladder blade was removed and infant?s vertex was grasped, flexed and brought to the incision where the infant was delivered atraumatically using fundal pressure.? The cord was doubly clamped and cut following 60s of delayed cord clamping.? The infant was then passed to waiting pediatricians.? The placenta was delivered via gentle traction with additional manual extraction as necessary with evidence or concern for accreta. The placenta was then passed off the field.? The uterus was exteriorized and the uterine cavity was wiped of all clots and debris.? The bladder blade was reinserted and the hysterotomy incision was repaired with #0 vicryl in a running locked fashion, followed by a second #0 vicryl in an imbricating fashion.? Bilateral cornua were inspected with noted surgical absence of bilateral fallopian tubes, L cornua with ovary directly adherent over prior rupture site, R ovary visualized and grossly wnl.? The uterus was replaced into the abdomen without difficulty and the hysterotomy was noted to be hemostatic off of tension.? The rectus fascia was closed using #1 vicryl in a running fashion.? The incision was irrigated and hemostasis was achieved using the bovie.? The subcutaneous space was reapproximated using plain gut suture in a running fashion.? The skin was closed using 4-0 monocryl followed by application of steristrips and abdominal compression dressing.? All counts were correct x2.? The pt tolerated the procedure well and without difficulty. Fundal contents were expressed and fundus noted to be firm, level noted prior to patient transfer to PACU in stable condition.? Complications: none Post-operative Condition: stable Disposition: PACU Plan for aftercare: routine postop/
[2024-04-21] MEDS: KETOROLAC 30 MG/ML VIAL IV ×2 (15:05→21:01)
[2024-04-22] MEDS: ACETAMINOPHEN 325 MG TABLET 650 MG PO ×4 (00:47→19:44)
[2024-04-22] MEDS: KETOROLAC 30 MG/ML VIAL IV ×2 (03:06→09:21)
[2024-04-22 07:01] LABS: Add Manual Diff / Slide Review NO; Basophils Absolute Auto 100 /uL (0-100); Basophils Percent Auto 0.6 % (0-2); Eosinophils Absolute Auto 100 /uL (0-450); Eosinophils Percent Auto 0.6 % (2-4); Hematocrit 33.5 % (36-46); Hemoglobin 11.4 g/dL (12.0-16.0); Lymphocytes Absolute Auto 2000 /uL (1100-4500); Lymphocytes Percent Auto 12.3 % (25-40); Mean Corpuscular Hemoglobin 30.2 PG (26-34); Mean Corpuscular Volume 88.7 fL (80-100); Monocytes Absolute Auto 1000 /uL (0-900); Monocytes Percent Auto 6.3 % (3-14); Neutrophils Absolute Auto 12800 /uL (1500-7000); Neutrophils Percent Auto 80.2 % (50-75); Platelet Count 253 X10^3/uL (150-400); Red Blood Cell Count 3.78 X10^6/uL (4.0-5.2); Red Cell Distribution Width 14.5 % (11.6-14.8)
--- NOTE | 2024-04-22 08:14 | P.PNOB_ITS ---
Subjective - OB Subjective Patient comments: pain well controlled and tolerating diet; no flatus present [place] baby status: doing well feeding status: exclusively breast feeding Narrative: POD1 s/p 1LTCS at late , doing well. Tolerating full PO, has not yet passes flatus, scant lochia, exclusively Date Patient Seen: 04/22/24 Time Patient Seen: 08:15 Exam Vital Signs (past 8 hours): Oxygen Delivery Method Room Air Const General: cooperative, healthy appearing and comfortable Nutritional Appearance: average body habitus Orientation: alert, awake and oriented x3 Limitations: mental status not altered Chest Chest: normal inspection of the chest Resp Effort & Inspection: normal respiratory effort and able to speak in complete sentences Cardio Pulses: normal peripheral pulses GI Inspection: normal to inspection Other: fundus firm 2 below U, non-tender +distension, +tympany Other: deferred, pan OUT Skin General: no rashes or lesions noted Neuro General: patient alert, patient awake and patient oriented x3 Extrem General: normal to inspection Psych Mental Status: mental status grossly normal Judgment: judgment good Objective Labs 04/22/24 06:48 Labs: Laboratory Results - last 24 hr 04/22/24 06:48 WBC 16.0 H D RBC 3.78 L Hgb 11.4 L Hct 33.5 L MCV 88.7 MCH 30.2 MCHC 34.0 RDW 14.5 Plt Count 253 Neut % (Auto) 80.2 H Lymph % (Auto) 12.3 L [place] % (Auto) 6.3 Eos % (Auto) 0.6 L Baso % (Auto) 0.6 Neut # (Auto) 51470 H Lymph # (Auto) 2000 [place] # (Auto) 1000 H Eos # (Auto) 100 Baso # (Auto) 100 Assessment & Plan Plan day: 1 plan OB: routine care and routine postop care Comments: 34yo POD1 s/p 1LTCS, doing well Postop awaiting ROBF, encourage ambulation/chewing gum/warm sips pain well controlled, continue current analgesia exclusively no indication for pp contraception A1GDM - 6wk 2h OGTT indicated PNL: A+, rubella/VZV immune dispo: anticipate dc to home POD2-3 pending clinical course Time-Based Coding :: [TOTAL MINUTES] spent with patient and on the chart (including review of chart, obtaining history, exam, reviewing outside data, placing orders, documenting exam and treatment plan, and counseling patient) on [DATE].
[2024-04-22] MEDS: PRENATAL VIT,CALC/IRON/FOLIC 1 TABLET 1 TAB PO (09:21)
[2024-04-22] MEDS: IBUPROFEN 600 MG TABLET PO ×2 (17:45→23:25)
[2024-04-22] MEDS: OXYCODONE IR 5 MG TABLET PO (17:46)
[2024-04-23] MEDS: OXYCODONE IR 10 MG TABLET PO ×3 (00:24→12:21)
[2024-04-23] MEDS: ACETAMINOPHEN 325 MG TABLET 650 MG PO ×2 (04:35→10:38)
[2024-04-23] MEDS: IBUPROFEN 600 MG TABLET PO (08:01)
[2024-04-23] MEDS: PRENATAL VIT,CALC/IRON/FOLIC 1 TABLET 1 TAB PO (08:02)
--- NOTE | 2024-04-23 10:29 | P.DS_ITS ---
History of Present Illness History of Present Illness Date Patient Seen: 04/23/24 Time Patient Seen: 10:30 Date of Onset of Symptoms: 04/21/24 Chief complaint: Primary , h/o myometrial incision Discharge Providers Provider Date of admission: 04/21/24 05:37 Discharge Date: 04/23/24 Primary care physician: CLIVE Madden Consults: 04/21/24 09:50 Consult to Numerical Control Operator Routine Comment: 04/21/24 11:54 Consult to Numerical Control Operator Routine Comment: Discharge provider: Elvira Vasquez MD Summary Hospital Course Discharge Diagnosis: s/p primary section, live born female at late Hospital Course: 34yo at 36w2d by IVF dating admitted to facility for scheduled primary section at late secondary to prior myometrial incision. Patient received spinal anesthesia and underwent procedure without complication, specifically no concern for adherent placenta and minimal intraabdominal adhesive disease. Intraoperative EBL 800, LBFI with APGARs/wgt per peds documentation. Pt had uncomplicated course with spontaneous return of bowel function late on POD1, pain adequately controlled with oral analgesia, ambulating and voiding independently and tolerating full diet. Pt discharged to home on POD2 meeting all discharge milestones, routine 1wk incision check in office, plan for 2h OGTT 6wk secondary to A1GDM. Status at Discharge Cognitive/behavioral status at discharge: oriented Functional status at discharge: independent ambulation Overall status at discharge: patient is back to baseline Time Spent with Patient Time spent: Less than 30 minutes Exam Vital Signs (past 8 hours): Oxygen Delivery Method Room Air Const General: cooperative, healthy appearing and comfortable Nutritional Appearance: average body habitus Limitations: mental status not altered Resp Effort & Inspection: normal respiratory effort and able to speak in complete sentences GI Other: fundus firm << umb, non-tender steristrips in place, old sang drainage without active bleeding, diffusely non- tender without erythema or induraiton Other: deferred Skin General: no rashes or lesions noted Neuro General: patient alert, patient awake and patient oriented x3 Extrem General: normal to inspection Psych Mental Status: mental status grossly normal Judgment: judgment good Objective Labs 04/22/24 06:48 [facility] Medical History (Updated 04/05/24 @ 22:56 by Jenna Estrada MD) High risk due to history of previous obstetrical problem Migraine without aura Ruptured ectopic Surgical History (Updated 10/31/23 @ 09:23 by Nayla Grant, RN) [place] teeth extracted History of endoscopy History of eye surgery History of gynecologic surgery History of bilateral salpingectomy Family History (Updated 10/31/23 @ 09:29 by Nayla Grant, RN) Mother Ovarian cancer Breast cancer Father Pancreatic cancer Diabetes mellitus Grandfather Prostate cancer Family/Other Diabetes mellitus Grandmother Pacemaker Grandfather Heart disease Uncle Leukemia in relapse Uncle No problems noted. 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[employer]) current occupational exposures/hazards: Yes (aware of precautions; facility does not screen for TB) special betty needs: No travel history: recent ([place]) seatbelt use: always helmet use: No (counseled to wear a helmet when snowboarding) water heater temp set < 120 deg: Yes working smoke detector in home: Yes fire extinguisher in home: Yes carbon monox detector in home: Yes firearms in home: Yes firearms unloaded and locked: Yes do you feel safe at home: Yes Smoking Status: Never smoker second hand exposure: No alcohol intake: former (occasionally when not ) substance use type: does not use during the past year weight has: increased > 10 lbs (with hormone therapy for IVF) well-balanced diet: daily or most days daily servings fruits/ve or more times/day caffeine: No (not since prior to IVF transfer) Type(s) of exercise: walking and weight lifting Discharge Assessment & Plan Assessment and Plan Assessment: 34yo G5 now [id number] now POD2 s/p primary section, appropriate for dc to home Routine 1wk incision check in office strict pp PIH precautions reviewed support PRN no indication for MMR, rhogam, contraception dc to home with f/u as above Discharge Plan Discharge Plan Patient Disposition: Home Provider Discharge Comment: No heavy lifting >10# for 6wks Discharge orders & Medications Prescriptions: New acetaminophen 325 mg Tablet 650 mg PO Q6H Qty: 60 0RF ibuprofen 600 mg Tablet 600 mg PO Q6H Qty: 30 0RF oxycodone 5 mg Tablet 5 mg PO Q4H PRN (Reason: Pain, Moderate (4-6)) Qty: 20 0RF Purelan Cream 1 applic topical PRN PRN (Reason: Skin protectant) Qty: 7 3RF sennosides-docusate sodium [Senexon-S] 8.6-50 mg tablet 1 tab-cap PO BEDTIME Qty: 30 0RF Continued PNV cmb#95-ferrous fumarate-FA [ Multivitamins] 28 mg iron- 800 mcg tablet 1 tab PO DAILY cholecalciferol (vitamin D3) 125 mcg (5,000 unit) capsule 125 mcg PO DAILY ascorbate calcium (vitamin C) 500 mg tablet 500 mg PO DAILY Discontinued ondansetron 4 mg tablet,disintegrating 4 mg PO Q8H PRN (Reason: nausea and vomiting) Qty: 14 0RF famotidine 40 mg tablet 40 mg PO DAILY Qty: 30 3RF sennosides [senna] 8.6 mg tablet 8.6 mg PO BEDTIME Qty: 60 0RF RSVPreF3 antigen-AS01E (PF) 120 mcg/0.5 mL suspension for reconstitution 0.5 ml IM ONCE Qty: 1 0RF No Action (DME) lancets Misc See Rx Instructions .ROUTE .MEDSUPPLY Qty: 100 3RF Rx Instructions: please chk AM fasting blood sugar, and 1 hour after brkfst, lunch and dinner (DME) blood-glucose meter [Blood Glucose Monitoring] Kit See Rx Instructions .ROUTE .MEDSUPPLY Qty: 1 0RF Rx Instructions: please chk AM fasting blood sugar, and 1 hour after brkfst, lunch and dinner (DME) Blood Glucose Test Strip See Rx Instructions .ROUTE .MEDSUPPLY Qty: 100 0RF Rx Instructions: Please check am fasting BS, and 1 hours after breakfast/lunch/dinner Follow up/Referrals: Lavonne Young, CAPTAIN/CHECK [employer]MAN-C [Primary Care Provider] - Elvira Vasquez MD [Physician] - Visit Report/Discharge Packet Stand Alone Forms: Patient Portal/API, Stroke Signs & Symptoms Discharge Data Primary Care Provider: Lavonne Young
== END 2024-04-23 13:08 | disposition home or self-care (01) | DRG 788 ==
PROVIDERS: Admitting Provider Obstetrics & Gynecology; PCP Nurse Practitioner Family; Referring Provider Obstetrics & Gynecology; Visit Provider Obstetrics & Gynecology
PROC: 10D00Z1 Extraction of Products of Conception, Low, Open Approach (ICD-10-PCS; CPT 59514; principal; 2024-04-21 07:45)
DX: O34.29 Maternal care due to uterine scar from other previous surgery (principal); N85.8 Other specified noninflammatory disorders of uterus; Z3A.36 36 weeks gestation of pregnancy; Z37.0 Single live birth; O99.892 Other specified diseases and conditions complicating childbirth; N73.6 Female pelvic peritoneal adhesions (postinfective)
CPT/HCPCS: 36415; 59050; 85025; 86850; 86900; 86901; J1100; J1885; J2274; J2405; J3010

== ENCOUNTER 2025-04-02 01:43 | Emergency (ER) | payer OTHER, SELFPAY ==
[2025-04-02] VITALS (9 sets, daily range): BP systolic 100–139; BP diastolic 55–75; PULSE 73–134; RESP 22; TEMP 37.4–38.8; O2SAT 95–97; BMI 27.4
[2025-04-02] MEDS: ACETAMINOPHEN 325 MG TABLET 975 MG PO (02:24)
[2025-04-02] MEDS: IBUPROFEN 400 MG TABLET 800 MG PO (02:24)
--- NOTE | 2025-04-02 02:29 | ED.URI ---
HPI - URI/Sore Throat General Chief Complaint: Fever Stated Complaint: Fever 105, rapid heart rate 130, N/V Time Seen by Provider: 04/02/25 02:12 Source: patient Mode of arrival: Ambulatory History of Present Illness HPI Narrative: Patient is a 35-year-old healthy female presenting today with fever ever respiratory like symptoms. Reports that her daughter was diagnosed with rhino virus few days ago. Tonight she woke up with a high fever and heart racing. She has got some laryngitis. But overall tolerating fluids he is going to mild cough no other symptoms Related Data Previous Rx's ?Medication ?Instructions ?Recorded azithromycin 250 mg tablet See Rx Instructions PO .COMPLEX #6 04/02/25 tabs Allergies Allergy/AdvReac Type Severity Reaction Status Date / Time Penicillins Allergy Severe Anaphylaxis Verified 04/02/25 01:50 Sulfa (Sulfonamide Allergy Severe Anaphylaxis Verified 04/02/25 01:50 Antibiotics) Patient History Medical History (Updated 04/02/25 @ 05:57 by Kathie Turpin DO) High risk due to history of previous obstetrical problem Migraine without aura Ruptured ectopic Surgical History (Updated 10/31/23 @ 09:23 by Nayla Grant, ROSALIO) Shepherd teeth extracted History of endoscopy History of eye surgery History of gynecologic surgery History of bilateral salpingectomy Family History (Updated 10/31/23 @ 09:29 by Nayla Grant, ROSALIO) Mother Ovarian cancer Breast cancer Father Pancreatic cancer Diabetes mellitus Grandfather Prostate cancer Family/Other Diabetes mellitus Grandmother Pacemaker Grandfather Heart disease Uncle Leukemia in relapse Uncle No problems noted. 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[employer]) current occupational exposures/hazards: Yes (aware of precautions; facility does not screen for TB) special betty needs: No travel history: recent ([place]) seatbelt use: always helmet use: No (counseled to wear a helmet when snowboarding) water heater temp set < 120 deg: Yes working smoke detector in home: Yes fire extinguisher in home: Yes carbon monox detector in home: Yes firearms in home: Yes firearms unloaded and locked: Yes do you feel safe at home: Yes Smoking Status: Never smoker second hand exposure: No alcohol intake: former (occasionally when not ) substance use type: does not use during the past year weight has: increased > 10 lbs (with hormone therapy for IVF) well-balanced diet: daily or most days daily servings fruits/ve or more times/day caffeine: No (not since prior to IVF transfer) Type(s) of exercise: walking and weight lifting Smoking Status: Never smoker Exam Initial Vital Signs Initial Vital Signs: Vital Signs Temperature 102 F H 04/02/25 01:50 Pulse Rate 128 H 04/02/25 01:50 Respiratory Rate 22 04/02/25 01:50 Blood Pressure 123/73 04/02/25 01:50 Pulse Oximetry 95 04/02/25 01:50 Oxygen Delivery Method Room Air 04/02/25 01:50 GENERAL: Alert 35-year-old female heal well and in [no acute] distress. HEENT: Head atraumatic,EOMI, pupils reactive, face symmetric, [moist] mucous membranes CARDIOVASCULAR: Regular rate and rhythm without murmurs, rubs or gallops. RESPIRATORY: Breath sounds equal bilaterally, no wheezes rales or rhonchi. ABDOMEN: Soft, nontender. Normoactive bowel sounds all 4 quadrants. No guarding or rebound. EXTREMITIES: Normal range of motion, no clubbing or edema. Neurovascularly intact NEUROLOGICAL: Alert and oriented x4.Normal gait and speech. Cranial nerves II through XII grossly intact. SKIN: Warm, dry, no laceration, no petechiae, no rashes or lesions. Course Orders Ordered: ED Orders 04/02/25 02:57 Blood Culture Stat CBC Auto Diff [Complete Blood Count AUTO DIFF] Stat CMP [Comprehensive Metabolic Panel] Stat Lactate (Lactic Acid) Stat 04/02/25 04:27 Chest [XR chest 1V] Stat Discontinued Medications Acetaminophen (Acetaminophen 325 Mg Tablet) 975 mg PO NOW ONE Stop: 04/02/25 02:21 Last Admin: 04/02/25 02:24 Dose: 975 mg Documented By: SGF Sodium Chloride (Normal Saline 0.9%) 1,000 mls @ 1,000 mls/hr IV BOLUS ONE Stop: 04/02/25 03:28 Last Infusion: 04/02/25 04:27 Dose: Infused Documented By: Admin: 04/02/25 02:34 Dose: 1,000 mls/hr Documented By: NOE Ibuprofen (Ibuprofen 400 Mg Tablet) 800 mg PO NOW ONE Stop: 04/02/25 02:21 Last Admin: 04/02/25 02:24 Dose: 800 mg Documented By: NOE Vital Signs Vital signs: Vital Signs - 8 hr 04/02/25 01:50 04/02/25 02:28 04/02/25 02:29 Temperature 102 F H Pulse Rate 128 H 130 H 130 H Respiratory Rate 22 Blood Pressure 123/73 Pulse Oximetry 95 97 97 Oxygen Delivery Method Room Air 04/02/25 02:29 04/02/25 02:30 04/02/25 02:30 Temperature Pulse Rate 134 H Respiratory Rate Blood Pressure 139/63 114/55 L Pulse Oximetry 97 Oxygen Delivery Method 04/02/25 03:00 04/02/25 03:00 04/02/25 03:30 Temperature Pulse Rate 117 H Respiratory Rate Blood Pressure 108/63 100/75 Pulse Oximetry 95 Oxygen Delivery Method 04/02/25 03:30 04/02/25 04:00 04/02/25 04:00 Temperature 99.3 F 99.3 F Pulse Rate 107 H Respiratory Rate Blood Pressure Pulse Oximetry 96 Oxygen Delivery Method 04/02/25 04:00 04/02/25 04:00 04/02/25 04:06 Temperature 99.3 F Pulse Rate 113 H Respiratory Rate Blood Pressure 125/65 Pulse Oximetry 97 Oxygen Delivery Method 04/02/25 04:28 Temperature Pulse Rate 73 Respiratory Rate Blood Pressure Pulse Oximetry Oxygen Delivery Method MDM - URI/Sore Throat Lab Data 04/02/25 02:57 04/02/25 02:57 Labs: Lab Results 04/02/25 Range/Units 02:57 WBC 16.9 H (4.5-11.0) X10^3/uL RBC 4.54 (4.0-5.2) X10^6/uL Hgb 12.4 (12.0-16.0) g/dL Hct 37.2 (36-46) % MCV 81.9 (80-100) fL MCH 27.4 (26-34) PG MCHC 33.4 (30-36) % RDW 13.9 (11.6-14.8) % Plt Count 320 (150-400) X10^3/uL Neut % (Auto) 91.1 H (50-75) % Lymph % (Auto) 4.3 L (25-40) % [place] % (Auto) 3.1 (3-14) % Eos % (Auto) 1.3 L (2-4) % Baso % (Auto) 0.2 (0-2) % Neut # (Auto) 28841 H (4053-9232) /uL Lymph # (Auto) 700 L (8778-2028) /uL [place] # (Auto) 500 (0-900) /uL Eos # (Auto) 200 (0-450) /uL Baso # (Auto) 0 (0-100) /uL Sodium 135 L (137-145) mmol/L Potassium 3.7 (3.4-5.1) mmol/L Chloride 102 (98-107) mmol/L Carbon Dioxide 22 (22-32) mmol/L BUN 10 (7-17) mg/dL Creatinine 0.57 (0.52-1.04) mg/dL Estimated GFR > 60 (>60) mL/min BUN/Creatinine Ratio 17.5 (6-22) Glucose 126 H (70-99) mg/dL Lactate 1.5 (0.7-2.1) mmol/L Calcium 9.1 (8.4-10.2) mg/dL Total Bilirubin 0.6 (0.2-1.3) mg/dL AST 21 (14-36) IU/L ALT 19 (<35) IU/L Alkaline Phosphatase 55 (38-126) U/L Total Protein 7.7 (6.3-8.2) g/dL Albumin 4.5 (3.5-5.0) g/dL Globulin 3.2 (1.7-4.1) g/dL Albumin/Globulin Ratio 1.4 (1.0-2.8) Imaging Data Chest x-ray: Radiologist's Impression: Right middle lobe infiltrate MDM Narrative Medical decision making narrative: Patient healthy 35-year-old female who had exposure to rhino virus, presenting today with fever and tachycardia. Blood work does show leukocytosis of 16.9 however by sober she also had an elevated leukocytosis. She has mild left shift. Electrolytes within normal limits Lactate 1.5 Chest x-ray right middle lobe infiltrate Viral testing was not done daughter positive for rhino virus Patient does have leukocytosis of 16, x-ray right middle lobe infiltrate. She has not septic she has a normal lactate vitals improved with fever and IV fluid medication. We will start her on azithromycin and amoxicillin Discharge Plan Departure Patient Disposition: Home Clinical Impression: Acute upper respiratory infection, Pneumonia Instructions: DI for Viral Upper Respiratory Infection -- Adult Activity Restrictions/Additional Instructions: *You have been diagnosed with upper respiratory infection *What to do: Presumed to be of the same virus as your daughter. No need for antibiotics *Continue to take medications as directed *Follow up with your primary care provider in 2-3 days or call [phone] *Return to ER if you should have increasing you shortness of breath or weakness [or] any new, worsening or concerning symptoms Prescriptions: New azithromycin 250 mg tablet See Rx Instructions PO .COMPLEX Qty: 6 0RF Rx Instructions: For 250 mg dose pack: take 500 mg today (day 1), then 250 mg for 4 days (days 2-5) Referrals: ProviderJonathan [Primary Care Provider, Family Practice] Stand Alone Forms: Patient Portal/API
[2025-04-02] MEDS: SODIUM CHLORIDE 0.9% 1,000 ML 1000 ML IV (02:34)
[2025-04-02 03:03] LABS: Add Manual Diff / Slide Review NO; Hematocrit 37.2 % (36-46); Hemoglobin 12.4 g/dL (12.0-16.0); Lymphocytes Absolute Auto 700 /uL (1100-4500); Mean Corpuscular HGB Conc 33.4 % (30-36); Mean Corpuscular Hemoglobin 27.4 PG (26-34); Mean Corpuscular Volume 81.9 fL (80-100); Platelet Count 320 X10^3/uL (150-400)
[2025-04-02 03:15] LABS: Alanine Aminotransferase 19 IU/L (<35); Albumin 4.5 g/dL (3.5-5.0); Albumin Globulin Ratio 1.4 (1.0-2.8); Alkaline Phosphatase 55 U/L (38-126); Blood Urea Nitrogen 10 mg/dL (7-17); Calcium 9.1 mg/dL (8.4-10.2); Carbon Dioxide 22 mmol/L (22-32); Chloride 102 mmol/L (98-107); Estimated Glomerular Filt Rate > 60 mL/min (>60); Globulin 3.2 g/dL (1.7-4.1); Glucose 126 mg/dL (70-99); HEMOLYSIS < 15 (0-50); Potassium 3.7 mmol/L (3.4-5.1); Sodium 135 mmol/L (137-145); Total Protein 7.7 g/dL (6.3-8.2)
[2025-04-02 03:16] LABS: Lactate (Lactic Acid) 1.5 mmol/L (0.7-2.1)
--- NOTE | 2025-04-02 04:27 | DI.RAD.S_ITS ---
PROCEDURE: XR CHEST 1V INDICATIONS: Fever, tachycardia, cough TECHNIQUE: One view of the chest was acquired. COMPARISON: None. FINDINGS: Surgical changes and devices: None. Lungs and pleura: Possible right lower lung zone airspace opacity, without silhouetting of the right heart border. Mediastinum: Mediastinal contours appear normal. Heart size is normal. Bones and chest wall: No suspicious bony lesions. Overlying soft tissues appear unremarkable. IMPRESSION: Possible right lower lung zone airspace opacity, without silhouetting of the right heart border. Dictated by: Varinder Badillo M.D. on 04/02/2025 at 9:13 Approved by: Varinder Badillo M.D. on 04/02/2025 at 9:15
== END 2025-04-02 05:40 | disposition home or self-care (01) ==
PROVIDERS: Emergency Provider Emergency Medicine
DX: J06.9 Acute upper respiratory infection, unspecified (principal); J18.9 Pneumonia, unspecified organism; R00.0 Tachycardia, unspecified
CPT/HCPCS: 36415; 71045; 80053; 83605; 85025; 87040; 96360; 96361; 99284

== ENCOUNTER 2025-05-14 09:47 | Emergency (ER) | payer OTHER, SELFPAY ==
[2025-05-14 10:06] VITALS: BP 118/69; PULSE 94; RESP 16; TEMP 36.7; O2SAT 98; BMI 27.4
--- NOTE | 2025-05-14 10:08 | DI.RAD.S_ITS ---
PROCEDURE: XR CHEST 2V
--- NOTE | 2025-05-14 10:30 | ED_ITS ---
HPI - URI/Sore Throat
--- NOTE | 2025-05-14 10:30 | ED.URI ---
HPI - URI/Sore Throat General Chief Complaint: Upper Respiratory Symptoms Stated Complaint: Rt side and flank pain when coughing Time Seen by Provider: 05/14/25 09:52 History of Present Illness HPI Narrative: 35-year-old female with a recent diagnosis of RSV in the past month concern for pneumonia with subjective fever, cough, and right-sided pain upon coughing. She denies sore throat, chest pain, shortness of breath, dyspnea on exertion, leg pain, leg swelling, vomiting, diarrhea, or sick contacts. Other than what is stated 14 point review of system is negative. Related Data Previous Rx's ?Medication ?Instructions ?Recorded azithromycin 250 mg tablet See Rx Instructions PO .COMPLEX #6 04/02/25 tabs albuterol sulfate 90 mcg/actuation 2 puff inhalation Q4-6H PRN 05/14/25 aerosol inhaler shortness of breath or wheezing #6.7 grams prednisone 20 mg tablet 20 mg PO BID #10 tabs 05/14/25 Allergies Allergy/AdvReac Type Severity Reaction Status Date / Time Penicillins Allergy Severe Anaphylaxis Verified 04/02/25 01:50 Sulfa (Sulfonamide Allergy Severe Anaphylaxis Verified 04/02/25 01:50 Antibiotics) Review of Systems Review of Systems ROS Unobtainable: All systems reviewed & are unremarkable except as noted in HPI and below Patient History Medical History (Updated 05/14/25 @ 11:44 by Sidney Villafuerte DO) High risk due to history of previous obstetrical problem Migraine without aura Ruptured ectopic Surgical History (Updated 10/31/23 @ 09:23 by Nayla Grant, ROSALIO) Clever teeth extracted History of endoscopy History of eye surgery History of gynecologic surgery History of bilateral salpingectomy Family History (Updated 10/31/23 @ 09:29 by Nayla Grant, ROSALIO) Mother Ovarian cancer Breast cancer Father Pancreatic cancer Diabetes mellitus Grandfather Prostate cancer Family/Other Diabetes mellitus Grandmother Pacemaker Grandfather Heart disease Uncle Leukemia in relapse Uncle No problems noted. 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[employer]) current occupational exposures/hazards: Yes (aware of precautions; facility does not screen for TB) special betty needs: No travel history: recent ([place]) seatbelt use: always helmet use: No (counseled to wear a helmet when snowboarding) water heater temp set < 120 deg: Yes working smoke detector in home: Yes fire extinguisher in home: Yes carbon monox detector in home: Yes firearms in home: Yes firearms unloaded and locked: Yes do you feel safe at home: Yes second hand exposure: No alcohol intake: former (occasionally when not ) substance use type: does not use during the past year weight has: increased > 10 lbs (with hormone therapy for IVF) well-balanced diet: daily or most days daily servings fruits/ve or more times/day caffeine: No (not since prior to IVF transfer) Type(s) of exercise: walking and weight lifting Exam Narrative Exam Narrative: GENERAL: [35] year old patient appears stated age. Well-developed patient, in mild distress. HEAD: Atraumatic. Normocephalic. EYES: Pupils equal round and reactive. Extraocular motions intact. No scleral icterus. No injection or drainage. ENT: Nose without bleeding, purulent drainage. Throat without erythema, tonsillar hypertrophy or exudate. Airway patent. NECK: Trachea midline. Non tender CARDIOVASCULAR: Regular rate and rhythm without murmurs, gallops, or rubs. RESPIRATORY: Clear to auscultation. Breath sounds equal bilaterally. No wheezes, rales, or rhonchi. GASTROINTESTINAL: Abdomen soft, non-tender, nondistended. EXTREMITIES: No edema or joint tenderness. BACK: Nontender without deformity or crepitance. No flank tenderness. NEURO: AOx3. SKIN: No rash or erythema of visible areas Initial Vital Signs Initial Vital Signs: Vital Signs Temperature 98.1 F 05/14/25 10:06 Pulse Rate 94 H 05/14/25 10:06 Respiratory Rate 16 05/14/25 10:06 Blood Pressure 118/69 05/14/25 10:06 Pulse Oximetry 98 05/14/25 10:06 Oxygen Delivery Method Room Air 05/14/25 10:06 Course Orders Ordered: ED Orders 05/14/25 10:08 CXR [XR chest 2V] Stat Covid-19 + FLU A/B + RSV - PCR Stat Discontinued Medications Prednisone (Prednisone 20 Mg Tablet) 60 mg PO NOW ONE Stop: 05/14/25 10:32 Last Admin: 05/14/25 10:51 Dose: 60 mg Documented By: GE Vital Signs Vital signs: Vital Signs - 8 hr 05/14/25 11:53 Temperature 97.6 F Pulse Rate 87 Respiratory Rate 16 Blood Pressure 115/66 Pulse Oximetry 97 Oxygen Delivery Method Room Air MDM - URI/Sore Throat Lab Data Labs: Lab Results 05/14/25 Range/Units 10:08 SARS-CoV-2 (PCR) Negative (Negative) Influenza A (RT-PCR) Flu a negative (NEGATIVE) Influenza B (RT-PCR) Flu b negative (NEGATIVE) RSV (PCR) Negative (Negative) Imaging Data Chest x-ray: Radiologist's Impression: [address] [address] XRay Report Signed Patient: Caro Ryan MR#: [id number] : 1990 Acct:[id number] Age/Sex: 35 / F Date of Service: 05/14/25 Loc: ED Accession Number: [id number] Procedure: XR chest 2V Ordering Provider: Sidney Villafuerte D.O. PROCEDURE: XR CHEST 2V INDICATIONS: cough TECHNIQUE: 2 views of the chest were acquired. COMPARISON: [facility], , XR CHEST 1V, 04/02/2025, 4:24. FINDINGS: Surgical changes and devices: None. Lungs and pleura: Lungs are clear. No pleural effusions or pneumothorax. Mediastinum: Mediastinal contours are normal. Heart size is normal. Bones and chest wall: No suspicious bony abnormalities. Soft tissues appear unremarkable. IMPRESSION: No acute cardiopulmonary abnormality is seen. Dictated by: Fam Hobson M.D. on 05/14/2025 at 10:59 Approved by: Fam Hobson M.D. on 05/14/2025 at 11:00 [facility] Narrative Medical decision making narrative: All lab work, vital signs, nurse triage note, medication list, previous ER visits, and all imaging studies reviewed. COVID flu RSV is negative. Chest x-ray d/c home on prednisone and inhaler Discharge Plan Departure Patient Disposition: Home Clinical Impression: Acute bronchitis, viral Instructions: DI for Bronchiolitis Activity Restrictions/Additional Instructions: Return with new or worsening symptoms. Take medicines as directed. Follow up PCP in 1-2 weeks if no improvement in symptoms. Prescriptions: New prednisone 20 mg tablet 20 mg PO BID Qty: 10 0RF albuterol sulfate 90 mcg/actuation HFA aerosol inhaler 2 puff inhalation Q4-6H PRN (Reason: shortness of breath or wheezing) Qty: 6.7 0RF No Action azithromycin 250 mg tablet See Rx Instructions PO .COMPLEX Qty: 6 0RF Rx Instructions: For 250 mg dose pack: take 500 mg today (day 1), then 250 mg for 4 days (days 2-5) Referrals: ProviderJonathan [Primary Care Provider, Family Practice] Stand Alone Forms: Patient Portal/API
[2025-05-14 10:51] LABS: Influenza A - CEPHEID Flu A NEGATIVE (NEGATIVE); Influenza B - CEPHEID Flu B NEGATIVE (NEGATIVE)
[2025-05-14 11:11] LABS: COVID-19 CEPHEID 4-PLEX PCR Negative (Negative)
[2025-05-14 11:53] VITALS: BP 115/66; PULSE 87; RESP 16; TEMP 36.4; O2SAT 97
== END 2025-05-14 11:54 | disposition home or self-care (01) ==
PROVIDERS: Emergency Provider Family Medicine
DX: J20.8 Acute bronchitis due to other specified organisms (principal)
CPT/HCPCS: 71046; 87637; 99283